=== PATIENT | female | born 1965 | race African-American/Black ===

== ENCOUNTER 2019-12-15 20:36 | Emergency (ER) | payer MEDICAID, MEDICARE ==
[~2019-12-15] VITALS: Ht 167.6 cm; Wt 92.0 kg
[2019-12-15] MEDS ORDERED: KETOROLAC 30MG/ML VIAL IM ONE (23:15)
[2019-12-15] MEDS ORDERED: HYDROCODONE/ACETAMINOPHEN 5/325MG TABLET PO ONE (23:15)
[2019-12-16 00:18] VITALS: BP 155/87
== END 2019-12-16 00:19 | disposition home or self-care (01) ==
LOC: ER 20:36 → EDBD 20:36 → ER 12-16 00:19
DX: M54.5 Low back pain (principal); I10 Essential (primary) hypertension
CPT/HCPCS: 96372; 99283; J1885